=== PATIENT | male | born 1955 | race Caucasian/White ===

== ENCOUNTER 2020-06-01 12:10 | Emergency (ER) | payer MEDICARE, OTHER ==
[2020-06-01 13:43] LABS: HEMOGLOBIN 16.7 gm/dl (14.0-17.5); RED BLOOD COUNT 6.26 M/UL (4.20-5.50); WHITE BLOOD COUNT 8.2 K/UL (4.5-11.0)
[2020-06-01 14:38] LABS: BUN/CREATININE RATIO 23 (0-10)
== END 2020-06-01 18:38 | disposition home or self-care (01) ==
LOC: ER1 12:10
PROVIDERS: Physician Assistant Medical
DX: R07.9 Chest pain, unspecified (principal); I25.2 Old myocardial infarction; E11.9 Type 2 diabetes mellitus without complications; I10 Essential (primary) hypertension; Z98.890 Other specified postprocedural states; Z79.82 Long term (current) use of aspirin
CPT/HCPCS: 71045; 80053; 82550; 82553; 83874; 83880; 84484; 85025; 93005; 99285